=== PATIENT | female | born 1990 | race Caucasian/White ===

== ENCOUNTER 2022-03-08 12:12 | Emergency (ER) | payer OTHER ==
[2022-03-08 12:28] VITALS: BP 118/67; PULSE 67; RESP 18; TEMP 98; BMI 34.1
[2022-03-08] MEDS ORDERED: SODIUM CHLORIDE 0.9% 500 ML INFUS.BAG IV ONE (13:39)
[2022-03-08] MEDS ORDERED: ACETAMINOPHEN 1000 MG/100 ML BAG IVPB ONE (13:39)
[2022-03-08] MEDS ORDERED: ACETAMINOPHEN INJECTION 100 ML IVPB ONE (13:48)
[2022-03-08 14:16] LABS: BASO % 0.4 % (0-2.0); HEMATOCRIT 40.3 % (32.4-45.2); HEMOGLOBIN 13.1 GM/dL (10.7-15.3); LYMPH % 22.2 % (8-40); MCH 28.6 pg (25.7-33.7); MCHC 32.6 g/dl (32.0-36.0); MEAN CELL VOLUME 87.7 fl (80-96); MEAN PLT VOLUME 8.8 fl (7.5-11.1); MONO % 8.6 % (3.8-10.2); NEUT % 65.8 % (42.8-82.8); PLATELET COUNT 221 10^3/uL (134-434); RBC 4.59 M/mm3 (3.60-5.2); RDW 14.4 % (11.6-15.6); WHITE BLOOD COUNT 7.5 K/mm3 (4.0-10.0)
[2022-03-08 14:20] LABS: EPI CELLS 13 /uL (0-25.1); HYALINE CASTS 0 /uL (0-3.1); URINE APPEARANCE CLEAR; URINE BACTERIA 227 /uL (0-1359); URINE BILIRUBIN NEGATIVE (NEGATIVE); URINE COLOR YELLOW; URINE GLUCOSE (UA) NEGATIVE (NEGATIVE); URINE KETONE NEGATIVE (NEGATIVE); URINE LEUK ESTERASE TRACE (NEGATIVE); URINE NITRITE NEGATIVE (NEGATIVE); URINE PROTEIN NEGATIVE (NEGATIVE); URINE RBC 29 /uL (0-23.9); URINE UROBILINOGEN 0.2 mg/dL (0.2-1.0); URINE WBC 19 /uL (0-25.8)
[2022-03-08 14:41] LABS: ALBUMIN 2.9 g/dl (3.4-5.0); BLOOD UREA NITROGEN 6.4 mg/dL (7-18); CALCIUM 9.2 mg/dL (8.5-10.1); MAGNESIUM 1.9 mg/dL (1.8-2.4)
[2022-03-08 14:45] LABS: BILIRUBIN,TOTAL 0.2 mg/dL (0.2-1); CREATININE 0.5 mg/dL (0.55-1.3)
== END 2022-03-08 16:43 | disposition home or self-care (01) ==
LOC: JER 12:12
PROC: 3E033GC Introduction of Other Therapeutic Substance into Peripheral Vein, Percutaneous Approach (ICD-10-PCS; principal; 2022-03-08)
DX: O26.891 Other specified pregnancy related conditions, first trimester (principal); R10.30 Lower abdominal pain, unspecified; Z3A.12 12 weeks gestation of pregnancy
CPT/HCPCS: 36415; 76801-TC; 80053; 81003; 83735; 84703; 85025; 86850; 86900; 86901; 87086; 99284-25

== ENCOUNTER 2022-08-23 13:25 | Inpatient (IN) | payer OTHER ==
[2022-08-23 15:23] VITALS: BMI 35.9
[2022-08-23] MEDS ORDERED: ELECTROLYTE-148 SOLN 500 ML IV ONE (15:35)
[2022-08-23] MEDS ORDERED: CITRIC ACID/SODIUM CITRATE 30 ML UNIT-DOSE CUP PO ONE (15:35)
[2022-08-23] MEDS ORDERED: IBUPROFEN 800 MG/8 ML IJ IVPB PRN (15:42)
[2022-08-23] MEDS ORDERED: ELECTROLYTE-148 SOLN 1,000 ML IV SCH (15:45)
[2022-08-23] MEDS ORDERED: morphine SULFATE/PF 1 MG/2 ML (2cc Syringe - QUVA) ONE (15:46)
[2022-08-23] MEDS ORDERED: FENTANYL CITRATE/PF 50 MCG/ML VIAL ONE (15:46)
[2022-08-23] MEDS ORDERED: LIGASURE IMPACT TP ONE (16:05)
[2022-08-23] MEDS ORDERED: ONDANSETRON 4 MG/2 ML VIAL ONE (16:46)
[2022-08-23] MEDS ORDERED: ceFAZolin SODIUM 1 GM VIAL ONE (16:46)
[2022-08-23] MEDS ORDERED: KETOROLAC TROMETHAMINE 30 MG/1 ML VIAL ONE (16:46)
[2022-08-23] MEDS ORDERED: OXYTOCIN 10 UNITS/ML VIAL ONE (16:46)
[2022-08-23 17:03] LABS: CORD BASE EXCESS -3.9 mmol/L (0-2); CORD HCO3 21.8 mmHg (20-29); CORD PCO2 42.2 mmHg (30-78); CORD pH 7.332 (7.14-7.44)
[2022-08-23] MEDS ORDERED: ACETAMINOPHEN 1000 MG/100 ML BAG IVPB ONE (17:08)
[2022-08-23] MEDS ORDERED: morphine SULFATE/PF 1 MG/2 ML (2cc Syringe - QUVA) SPIN ONE (17:08)
[2022-08-23] MEDS ORDERED: ONDANSETRON 4 MG/2 ML VIAL IVPUSH PRN (17:08)
[2022-08-23] MEDS ORDERED: OXYTOCIN 20 UNITS in 0.9% NS 20 UNIT/1,000 ML INFUS.BAG IV ONE (17:37)
[2022-08-23] MEDS ORDERED: ACETAMINOPHEN INJECTION 100 ML IVPB ONE (17:37)
[2022-08-23] MEDS: OXYTOCIN 20 UNITS in 0.9% NS 20 UNIT/1,000 ML INFUS.BAG IV SCH ×2 (17:45→23:58)
[2022-08-23] MEDS ORDERED: ceFAZolin 2 GRAM PREMIX BAG IVPB ONE (23:55)
[2022-08-23] MEDS ORDERED: CEFAZOLIN SODIUM 2 GM in DEXTROSE 5%-WATER 100 ML IVPB ONE (23:55)
[2022-08-24] MEDS ORDERED: oxyCODONE HCL 5 MG TABLET PO PRN (03:42)
[2022-08-24] MEDS: SIMETHICONE 80 MG TAB.CHEW (FP) PO PRN ×3 (05:49→21:57)
[2022-08-24 08:19] LABS: BASO % 0.4 % (0-2.0); EOS % 1.6 % (0-4.5); HEMATOCRIT 29.8 % (32.4-45.2); LYMPH % 15.6 % (8-40); MCH 27.9 pg (25.7-33.7); MCHC 33.5 g/dl (32.0-36.0); MEAN CELL VOLUME 83.3 fl (80-96); MEAN PLT VOLUME 9.1 fl (7.5-11.1); MONO % 7.2 % (3.8-10.2); NEUT % 75.2 % (42.8-82.8); PLATELET COUNT 133 10^3/uL (134-434); RBC 3.58 M/mm3 (3.60-5.2); RDW 17.9 % (11.6-15.6); WHITE BLOOD COUNT 7.5 K/mm3 (4.0-10.0)
[2022-08-24] MEDS: IBUPROFEN 600 MG TABLET (FP) PO PRN ×2 (11:52→23:16)
[2022-08-24] MEDS ORDERED: BISACODYL 10 MG SUPP.RECT RC PRN (15:42)
[2022-08-24 18:10] VITALS: RESP 18
[2022-08-24] MEDS: ACETAMINOPHEN 325 MG TABLET (FP) PO PRN (21:57)
[2022-08-25] MEDS: SIMETHICONE 80 MG TAB.CHEW (FP) PO PRN ×3 (06:01→20:51)
[2022-08-25] MEDS: IBUPROFEN 600 MG TABLET (FP) PO PRN ×3 (06:01→20:52)
[2022-08-25] MEDS: ACETAMINOPHEN 325 MG TABLET (FP) PO PRN ×2 (09:05→16:25)
[2022-08-25 20:55] VITALS: PULSE 75
[2022-08-26] MEDS: ACETAMINOPHEN 325 MG TABLET (FP) PO PRN ×2 (00:10→05:47)
[2022-08-26] MEDS: SIMETHICONE 80 MG TAB.CHEW (FP) PO PRN ×2 (00:10→03:40)
[2022-08-26] MEDS: IBUPROFEN 600 MG TABLET (FP) PO PRN ×2 (03:40→10:18)
[2022-08-26 07:36] LABS: BASO % 0.4 % (0-2.0); EOS % 4.6 % (0-4.5); HEMATOCRIT 28.5 % (32.4-45.2); HEMOGLOBIN 9.3 GM/dL (10.7-15.3); LYMPH % 25.9 % (8-40); MCH 27.9 pg (25.7-33.7); MCHC 32.7 g/dl (32.0-36.0); MEAN CELL VOLUME 85.3 fl (80-96); MEAN PLT VOLUME 9.2 fl (7.5-11.1); MONO % 5.6 % (3.8-10.2); NEUT % 63.5 % (42.8-82.8); PLATELET COUNT 173 10^3/uL (134-434); RBC 3.34 M/mm3 (3.60-5.2); RDW 18.2 % (11.6-15.6); WHITE BLOOD COUNT 7.2 K/mm3 (4.0-10.0)
[2022-08-26 10:38] VITALS: BP 95/61; TEMP 98.6
== END 2022-08-26 21:45 | disposition home or self-care (01) | DRG 540 ==
LOC: JLDR 13:25 → J3W 18:15
PROVIDERS: ADMIT Student in an Organized Health Care Education/Training Program; ATTEND Student in an Organized Health Care Education/Training Program
PROC: 10D00Z1 Extraction of Products of Conception, Low, Open Approach (ICD-10-PCS; principal; 2022-08-23)
PROC: 0UB70ZZ Excision of Bilateral Fallopian Tubes, Open Approach (ICD-10-PCS; 2022-08-23)
DX: O34.211 Maternal care for low transverse scar from previous cesarean delivery (principal); N85.8 Other specified noninflammatory disorders of uterus; O24.429 Gestational diabetes mellitus in childbirth, unspecified control; Z3A.38 38 weeks gestation of pregnancy; Z30.2 Encounter for sterilization; O99.214 Obesity complicating childbirth; Z37.0 Single live birth
CPT/HCPCS: 36415; 36600; 82803; 82962; 85025; 88302-TC; 88307-TC; 93970-TC